=== PATIENT | male | born 1965 | race Caucasian/White ===

== ENCOUNTER 2022-03-14 17:49 | Emergency (ER) | payer SELFPAY ==
[~2022-03-14] VITALS: Ht 175.3 cm; Wt 78.0 kg
[2022-03-14 17:55] VITALS: BP 109/70
[2022-03-14] MEDS ORDERED: ONDANSETRON HCL 4MG/2ML INJ IV STA (19:21)
[2022-03-14] MEDS ORDERED: LORAZEPAM 2MG/ML CPJ IV STA (19:21)
[2022-03-14] MEDS ORDERED: OLANZAPINE 10 MG/VIAL IM STA (19:21)
[2022-03-14] MEDS ORDERED: SODIUM CHLORIDE 0.9% 1,000 ML IV ONE (19:30)
[2022-03-14] MEDS ORDERED: PIPERACILLIN/TAZOBACTAM 3.375GM/50ML PREMIX IV NR (19:30)
== END 2022-03-14 20:19 | disposition left against medical advice (07) ==
LOC: ER 17:49 → EDBD 17:49 → ER 20:19
DX: R45.1 Restlessness and agitation (principal)
CPT/HCPCS: 99283; J2060; J3490; J7030